=== PATIENT | female | born 2000 | race Two or more races ===

== ENCOUNTER 2020-10-02 04:41 | Inpatient (IN) | payer OTHER ==
[2020-10-02] MEDS ORDERED: FERROUS SULFAT325 MG PO (06:22)
[2020-10-02 06:55] LABS: HEMOGLOBIN 12.4 gm/dl (12.3-15.3); RED BLOOD COUNT 4.15 M/UL (4.00-5.10); WHITE BLOOD COUNT 7.6 K/UL (4.5-11.0)
[2020-10-03 05:36] LABS: HEMOGLOBIN 11.5 gm/dl (12.3-15.3)
[2020-10-04] MEDS ORDERED: IBUPROFEN600 MG PO (10:54)
[2020-10-04] MEDS ORDERED: DOCUSATE SODIU100 MG PO (10:54)
[2020-10-04] MEDS ORDERED: HYDROCODON-ACE1 EAC4 PO (10:54)
== END 2020-10-04 15:40 | disposition home or self-care (01) | DRG 786 ==
LOC: OB 04:41
PROVIDERS: Obstetrics & Gynecology; ADMIT Obstetrics & Gynecology
PROC: 10D00Z1 Extraction of Products of Conception, Low, Open Approach (ICD-10-PCS; 2020-10-02)
PROC: 3E033VJ Introduction of Other Hormone into Peripheral Vein, Percutaneous Approach (ICD-10-PCS; 2020-10-02)
PROC: 4A1HX4Z Monitoring of Products of Conception, Cardiac Electrical Activity, External Approach (ICD-10-PCS; principal; 2020-10-02 22:32)
DX: O32.4XX0 Maternal care for high head at term, not applicable or unspecified (principal); O41.1230 Chorioamnionitis, third trimester, not applicable or unspecified; O41.03X0 Oligohydramnios, third trimester, not applicable or unspecified; Z3A.40 40 weeks gestation of pregnancy; Z37.0 Single live birth; Z20.822 Contact with and (suspected) exposure to COVID-19
CPT/HCPCS: 36415; 81001; 82800; 85014; 85018; 85025; 90715; C9113; J0290; J1200; J1580; J2210; J2274; J2300; J2405; J2590; J2795; J3010; J7120; U0002